=== PATIENT | male | born 1955 | race Caucasian/White ===

== ENCOUNTER 2018-06-04 16:40 | Inpatient (IN) | payer BC ==
[2018-06-04 17:30] LABS: ADD MAN DIFF? NO
[2018-06-04 17:40] LABS: WHITE BLOOD COUNT 5.4 10^3/ul (4.8-10.8)
[2018-06-04 17:40] LABS: BASOPHILS % 0.7 % (0.0-2.0); EOSINOPHILS # 0.1 10^3/ul (0.0-0.5); EOSINOPHILS % 1.7 % (0.0-7.0); HEMATOCRIT 42.3 % (42.0-52.0); HEMOGLOBIN 14.2 g/dl (14.0-18.0); LYMPHOCYTES % 18.5 % (15.0-51.0); MEAN CORPUSCULAR HEMOGLOBIN 30.5 pg (29.0-33.0); MEAN CORPUSCULAR HGB CONC 33.6 g/dl (32.0-37.0); MEAN PLATELET VOLUME 11.5 fl (7.4-10.4); MONOCYTE # 0.7 10^3/ul (0.3-0.9); MONOCYTES % 12.2 % (0.0-11.0); NEUTROPHIL # 3.6 10^3/ul (1.6-7.5); NEUTROPHILS % 66.7 % (39.0-77.0); PLATELET COUNT 121 10^3/UL (140-415); POSITIVE DIFF @See below; RED BLOOD COUNT 4.65 10^6/ul (4.70-6.10); RED CELL DISTRIBUTION WIDTH 13.5 % (11.5-14.5)
[2018-06-04] MEDS: BENZONATATE 100 MG CAP PO (17:56)
[2018-06-04 17:59] LABS: LIPASE 85 U/L (23-300)
[2018-06-04 18:02] LABS: ALANINE AMINOTRANSFERASE 27 IU/L (13-69); ALBUMIN 4.6 g/dl (3.3-4.9); ALBUMIN/GLOBULIN RATIO 1.31; ALKALINE PHOSPHATASE 101 IU/L (42-121); ANION GAP 11 (5-13); ASPARTATE AMINO TRANSFERASE 34 IU/L (15-46); BILIRUBIN,INDIRECT 0.7 mg/dl (0-1.1); BILIRUBIN,TOTAL 0.7 mg/dl (0.2-1.3); BLOOD UREA NITROGEN 21 mg/dl (7-20); CALCIUM 9.8 mg/dl (8.4-10.2); CARBON DIOXIDE 30 mmol/L (21-31); CHLORIDE 99 mmol/L (97-110); Estimated GFR > 60 mL/min (>60); GLUCOSE 134 mg/dl (70-220); POTASSIUM 4.3 mmol/L (3.5-5.1); SODIUM 140 mmol/L (135-144); TOTAL PROTEIN 8.1 g/dl (6.1-8.1)
[2018-06-04 18:13] LABS: B-TYPE NATRIURETIC PEPTIDE 2150 PG/ML (0-125); TROPONIN-I 0.034 ng/ml (0.000-0.120)
[2018-06-04] MEDS: ALBUTEROL 0.083% (NEB) 2.5 MG/3 ML AMP HHN ×2 (18:18→18:19)
[2018-06-04] MEDS: IPRATROPIUM (NEB) 0.5 MG/2.5 ML AMP HHN (18:18)
[2018-06-04] MEDS: PROMETHAZINE/CODEINE 5ML CUP PO (18:43)
[2018-06-04] MEDS: LORAZEPAM 2 MG INJ IV (18:43)
[2018-06-04] MEDS: FUROSEMIDE 40 MG INJ IV (18:51)
[2018-06-04] MEDS ORDERED: NITROGLYCERIN (SL) 0.4 MG TAB SL (23:30)
[2018-06-04] MEDS ORDERED: GLUCOSE GEL 15 GRAM TUBE PO ×2 (23:45)
[2018-06-04] MEDS ORDERED: DEXTROSE 50% 50 ML SYRINGE IV ×2 (23:45)
[2018-06-04] MEDS ORDERED: GLUCAGON 1 MG INJ IM (23:45)
[2018-06-04] MEDS ORDERED: GLUCOSE GEL 15 GRAM TUBE BUCCAL (23:45)
[2018-06-05] MEDS: ALBUTEROL/IPRATROPIUM (NEB) 3 ML AMP HHN ×3 (00:13→20:00)
[2018-06-05 01:27] LABS: TROPONIN-I 0.045 ng/ml (0.000-0.120)
[2018-06-05] MEDS: FUROSEMIDE 40 MG INJ IV ×2 (05:12→17:31)
[2018-06-05 06:01] LABS: ADD MAN DIFF? NO
[2018-06-05 06:02] LABS: BASOPHILS % 0.5 % (0.0-2.0); EOSINOPHILS # 0.1 10^3/ul (0.0-0.5); EOSINOPHILS % 0.8 % (0.0-7.0); HEMATOCRIT 40.6 % (42.0-52.0); HEMOGLOBIN 13.8 g/dl (14.0-18.0); LYMPHOCYTES # 1.2 10^3/ul (0.8-2.9); LYMPHOCYTES % 19.5 % (15.0-51.0); MEAN CORPUSCULAR HEMOGLOBIN 30.7 pg (29.0-33.0); MEAN CORPUSCULAR VOLUME 90.4 fl (82.0-101.0); MONOCYTE # 1.1 10^3/ul (0.3-0.9); MONOCYTES % 17.4 % (0.0-11.0); NEUTROPHIL # 3.7 10^3/ul (1.6-7.5); NEUTROPHILS % 61.3 % (39.0-77.0); PLATELET COUNT 109 10^3/UL (140-415); RED BLOOD COUNT 4.49 10^6/ul (4.70-6.10); RED CELL DISTRIBUTION WIDTH 13.1 % (11.5-14.5)
[2018-06-05 06:41] LABS: ALANINE AMINOTRANSFERASE 27 IU/L (13-69); ALBUMIN 4.5 g/dl (3.3-4.9); ALBUMIN/GLOBULIN RATIO 1.55; ALKALINE PHOSPHATASE 100 IU/L (42-121); ANION GAP 10 (5-13); ASPARTATE AMINO TRANSFERASE 33 IU/L (15-46); BILIRUBIN,INDIRECT 0.9 mg/dl (0-1.1); BILIRUBIN,TOTAL 0.9 mg/dl (0.2-1.3); BLOOD UREA NITROGEN 21 mg/dl (7-20); CALCIUM 9.6 mg/dl (8.4-10.2); CARBON DIOXIDE 29 mmol/L (21-31); CHLORIDE 100 mmol/L (97-110); CREATININE 0.88 mg/dl (0.61-1.24); Estimated GFR > 60 mL/min (>60); GLUCOSE 114 mg/dl (70-220); POTASSIUM 3.9 mmol/L (3.5-5.1); SODIUM 139 mmol/L (135-144); TOTAL PROTEIN 7.4 g/dl (6.1-8.1)
[2018-06-05 06:43] LABS: TROPONIN-I 0.047 ng/ml (0.000-0.120)
[2018-06-05] MEDS: INSULIN ASPART [NOVOLOG] 3 ML PEN SC ×4 (08:00→21:06)
[2018-06-05] MEDS: ACETAMINOPHEN 325 MG TAB PO (10:01)
[2018-06-05] MEDS: AMLODIPINE 10 MG TAB PO (10:01)
[2018-06-05] MEDS: ASPIRIN 81 MG TAB PO (10:01)
[2018-06-05] MEDS ORDERED: hydrALAzine 20 MG INJ IV (11:30)
[2018-06-05] MEDS: MAGNESIUM SULFATE 2 GM/50 ML 50 ML IVPB (12:00)
[2018-06-05 12:43] LABS: TROPONIN-I 0.047 ng/ml (0.000-0.120)
[2018-06-05] MEDS: PANTOPRAZOLE (EC) 40 MG TAB PO (12:45)
[2018-06-05] MEDS: METHYLPREDNISOLONE 125 MG INJ IV ×3 (12:45→23:20)
[2018-06-05] MEDS: SENNA TAB PO (13:30)
[2018-06-06] MEDS: ALBUTEROL/IPRATROPIUM (NEB) 3 ML AMP HHN ×4 (02:00→20:59)
[2018-06-06] MEDS: PANTOPRAZOLE (EC) 40 MG TAB PO (05:23)
[2018-06-06] MEDS: METHYLPREDNISOLONE 125 MG INJ IV (05:25)
[2018-06-06] MEDS: FUROSEMIDE 40 MG INJ IV ×2 (05:25→18:04)
[2018-06-06 06:24] LABS: ADD MAN DIFF? NO
[2018-06-06 06:37] LABS: WHITE BLOOD COUNT 3.9 10^3/ul (4.8-10.8)
[2018-06-06 06:37] LABS: ABNORMAL IP MESSAGE 1; BASOPHILS % 0.3 % (0.0-2.0); HEMOGLOBIN 14.5 g/dl (14.0-18.0); LYMPHOCYTES # 0.6 10^3/ul (0.8-2.9); LYMPHOCYTES % 14.3 % (15.0-51.0); MEAN CORPUSCULAR HEMOGLOBIN 30.9 pg (29.0-33.0); MEAN CORPUSCULAR HGB CONC 34.5 g/dl (32.0-37.0); MEAN CORPUSCULAR VOLUME 89.6 fl (82.0-101.0); MEAN PLATELET VOLUME 11.5 fl (7.4-10.4); MONOCYTE # 0.3 10^3/ul (0.3-0.9); MONOCYTES % 6.4 % (0.0-11.0); NEUTROPHIL # 3.1 10^3/ul (1.6-7.5); NEUTROPHILS % 78.7 % (39.0-77.0); PLATELET COUNT 95 10^3/UL (140-415); POSITIVE DIFF @See below; RED BLOOD COUNT 4.69 10^6/ul (4.70-6.10); RED CELL DISTRIBUTION WIDTH 12.7 % (11.5-14.5)
[2018-06-06 06:59] LABS: ANION GAP 13 (5-13); BLOOD UREA NITROGEN 27 mg/dl (7-20); CALCIUM 9.1 mg/dl (8.4-10.2); CARBON DIOXIDE 30 mmol/L (21-31); CHLORIDE 94 mmol/L (97-110); CREATININE 0.72 mg/dl (0.61-1.24); Estimated GFR > 60 mL/min (>60); GLUCOSE 368 mg/dl (70-220); POTASSIUM 3.9 mmol/L (3.5-5.1); SODIUM 137 mmol/L (135-144)
[2018-06-06 07:16] LABS: HEMOGLOBIN A1C 8.5 % (0-5.9)
[2018-06-06] MEDS: INSULIN ASPART [NOVOLOG] 3 ML PEN SC ×4 (07:33→21:34)
[2018-06-06] MEDS: AMLODIPINE 10 MG TAB PO (08:00)
[2018-06-06] MEDS: SENNA TAB PO (08:00)
[2018-06-06] MEDS: ASPIRIN 81 MG TAB PO (08:01)
[2018-06-06] MEDS: INSULIN GLARGINE [LANTus] (100 UNITS/ML) SYG SC (17:49)
[2018-06-06] MEDS: LEVOFLOXACIN 500MG/D5W (PMX) 100 ML IVPB (17:51)
[2018-06-07] MEDS: ALBUTEROL/IPRATROPIUM (NEB) 3 ML AMP HHN ×4 (02:40→20:00)
[2018-06-07] MEDS: PANTOPRAZOLE (EC) 40 MG TAB PO (05:14)
[2018-06-07] MEDS: FUROSEMIDE 40 MG INJ IV ×2 (05:14→17:37)
[2018-06-07] MEDS: INSULIN ASPART [NOVOLOG] 3 ML PEN SC ×7 (07:56→20:49)
[2018-06-07] MEDS: SENNA TAB PO (08:52)
[2018-06-07] MEDS: ASPIRIN 81 MG TAB PO (08:52)
[2018-06-07] MEDS: predniSONE 20 MG TAB PO (08:53)
[2018-06-07] MEDS: AMLODIPINE 10 MG TAB PO (08:54)
[2018-06-07 12:08] LABS: AADO2 Arterial 18.7 mmHg (7.0-24.0); Allen Test ACCEPTAB; Arterial Base Excess 6.8 mmol/L (-3.0-3); Arterial Blood Gas Oxygen Sat 96.3 mmHG (95.0-98.0); Arterial HCO3 31.1 mmol/L (22.0-26.0); Arterial MetHb 0.3 % (0.0-1.5); Arterial pCO2 42.7 mmhg (35-45); MODE ROOM AIR; Site Right Radial
[2018-06-07] MEDS: LEVOFLOXACIN 500MG/D5W (PMX) 100 ML IVPB (17:32)
[2018-06-07 18:57] LABS: TROPONIN-I 0.025 ng/ml (0.000-0.120)
[2018-06-07] MEDS: INSULIN GLARGINE [LANTus] (100 UNITS/ML) SYG SC (20:50)
[2018-06-08] MEDS: ALBUTEROL/IPRATROPIUM (NEB) 3 ML AMP HHN ×3 (02:00→13:35)
[2018-06-08 05:45] LABS: ADD MAN DIFF? NO
[2018-06-08 05:51] LABS: ABNORMAL IP MESSAGE 1; BASOPHILS % 0.1 % (0.0-2.0); EOSINOPHILS % 0.1 % (0.0-7.0); HEMATOCRIT 43.1 % (42.0-52.0); HEMOGLOBIN 14.6 g/dl (14.0-18.0); LYMPHOCYTES # 1.4 10^3/ul (0.8-2.9); LYMPHOCYTES % 18.1 % (15.0-51.0); MEAN CORPUSCULAR HEMOGLOBIN 30.5 pg (29.0-33.0); MEAN CORPUSCULAR HGB CONC 33.9 g/dl (32.0-37.0); MEAN CORPUSCULAR VOLUME 90.2 fl (82.0-101.0); MEAN PLATELET VOLUME 12.2 fl (7.4-10.4); MONOCYTE # 0.9 10^3/ul (0.3-0.9); MONOCYTES % 11.8 % (0.0-11.0); NEUTROPHIL # 5.2 10^3/ul (1.6-7.5); NEUTROPHILS % 69.4 % (39.0-77.0); PLATELET COUNT 97 10^3/UL (140-415); POSITIVE DIFF @See below; RED BLOOD COUNT 4.78 10^6/ul (4.70-6.10); RED CELL DISTRIBUTION WIDTH 12.4 % (11.5-14.5)
[2018-06-08 05:51] LABS: WHITE BLOOD COUNT 7.5 10^3/ul (4.8-10.8)
[2018-06-08] MEDS: PANTOPRAZOLE (EC) 40 MG TAB PO (05:53)
[2018-06-08] MEDS: FUROSEMIDE 40 MG INJ IV ×2 (05:54→17:23)
[2018-06-08 06:09] LABS: MAGNESIUM 1.8 mg/dl (1.7-2.5)
[2018-06-08 06:09] LABS: PHOSPHORUS 3.7 mg/dl (2.5-4.9)
[2018-06-08 06:12] LABS: ANION GAP 13 (5-13); BLOOD UREA NITROGEN 28 mg/dl (7-20); CALCIUM 9.2 mg/dl (8.4-10.2); CARBON DIOXIDE 35 mmol/L (21-31); CHLORIDE 91 mmol/L (97-110); CREATININE 0.67 mg/dl (0.61-1.24); Estimated GFR > 60 mL/min (>60); GLUCOSE 202 mg/dl (70-220); POTASSIUM 3.6 mmol/L (3.5-5.1); SODIUM 139 mmol/L (135-144)
[2018-06-08] MEDS: AMLODIPINE 10 MG TAB PO (08:06)
[2018-06-08] MEDS: ASPIRIN 81 MG TAB PO (08:06)
[2018-06-08] MEDS: predniSONE 20 MG TAB PO (08:07)
[2018-06-08] MEDS: SENNA TAB PO (08:07)
[2018-06-08] MEDS: INSULIN ASPART [NOVOLOG] 3 ML PEN SC ×6 (08:27→18:03)
[2018-06-08] MEDS: POLYETHYLENE GLYCOL 17 GM PACKET PO (12:15)
[2018-06-08] MEDS: LEVOFLOXACIN 500MG/D5W (PMX) 100 ML IVPB (17:23)
== END 2018-06-08 18:50 | disposition home or self-care (01) | DRG 192 ==
LOC: E/R 16:40 → 6WM 18:54
DX: J44.9 Chronic obstructive pulmonary disease, unspecified (principal); I50.9 Heart failure, unspecified; E11.65 Type 2 diabetes mellitus with hyperglycemia; D64.9 Anemia, unspecified; E66.3 Overweight; Z68.27 Body mass index [BMI] 27.0-27.9, adult; I25.2 Old myocardial infarction; E78.5 Hyperlipidemia, unspecified; I25.10 Atherosclerotic heart disease of native coronary artery without angina pectoris; H91.8X1 Other specified hearing loss, right ear; F17.200 Nicotine dependence, unspecified, uncomplicated; Z95.1 Presence of aortocoronary bypass graft; I11.0 Hypertensive heart disease with heart failure; J40 Bronchitis, not specified as acute or chronic
CPT/HCPCS: 36415; 36600; 71045; 80048; 80053; 82803; 82962; 83036; 83690; 83735; 83880; 84100; 84484; 85025; 93005; 93306; 94640; 94644; 96374; 96375; 99285-25